=== PATIENT | female | born 1975 | race Caucasian/White ===

== ENCOUNTER 2017-10-20 00:29 | Emergency (ER) | payer SELFPAY ==
[2017-10-20 00:32] VITALS: BP 127/84; PULSE 105; RESP 18; TEMP 36.9; O2SAT 98; BMI 19.5
--- NOTE | 2017-10-20 00:58 | ED.DCSUM_ITS ---
- ER Visit Summary Date of Service: 10/20/17 Chief Complaint: [] Substance abuse History of Present Illness: The patient is a 41 F patient stated she injected fentanyl earlier today and also took Roxicet pills. She did not take many of them. She is brought in with other person who overdosed and needed Narcan. She did not need these. She stated she is tearful and sad that she did this. She denies any other symptoms. Physical Examination: [] Vital signs reviewed General: Well-nourished well-developed Head: Normocephalic atraumatic Eyes: Pupils equal round and reactive to light extraocular movements intact ENT: TMs clear no hemotympanum no trauma Neck: Nontender full range of motion Cardiovascular: Regular rate rhythm no murmurs normal S1-S2 Respiratory: No distress clear to auscultation bilaterally chest nontender Abdomen: Soft nontender nondistended normal bowel sounds no masses Back: Nontender no CVA tenderness Extremities: Nontender active range of motion ?4 extremities no trauma Skin: Normal color no trauma Neuro alert oriented cranial nerves II through XII intact normal strength sensation reflexes. Slight slurred speech secondary to intoxication Test Results: [] Emergency Department Course and Treatment: [] Patient monitored in the department for several hours. She will be discharged upon sobriety Treatment Plan: [] Disposition: [] Impression: [] Narcotic abuse This note was generated with [employer] dictation software. It may contain incorrect words, spelling, and punctuation that were not noted in review of the chart prior to signing ED Disposition - Plan for ED Patient: Chief Complaint: Overdose
--- NOTE | 2017-10-20 00:58 | ED.DEP ---
ED Disposition - Plan for ED Patient: Disposition: Home or Assisted Living Chief Complaint: Overdose Instructions: ED Narcotic Abuse Referrals: EIGHTY,ONE [STAFF PHYSICIAN] -
[2017-10-20 01:40] VITALS: RESP 18; O2SAT 97
--- NOTE | 2017-10-20 01:41 | ED.RN ---
PATIENT WAS D/C WITH [facility]
== END 2017-10-20 01:43 | disposition home or self-care (01) ==
LOC: ED 01:22
PROVIDERS: Emergency Provider Emergency Medicine
DX: F19.10 Other psychoactive substance abuse, uncomplicated (principal); Z72.0 Tobacco use
CPT/HCPCS: 99284